=== PATIENT | male | born 1975 | race Two or more races ===

== ENCOUNTER → 2016-05-18 | Outpatient (REF) | payer BC ==
[2016-05-18 19:37] LABS: CALCIUM OXALATE CRYSTALS SMALL
== END ==
LOC: M SMT 17:04
PROVIDERS: ATTEND Nurse Practitioner Women's Health
DX: R35.0 Frequency of micturition (principal)

== ENCOUNTER 2017-04-11 09:24 | Day surgery (SDC) | payer BC ==
[2017-04-11] MEDS ORDERED: LIDOCAINE 1% MDV 20ML VIAL SQ (09:45)
[2017-04-11] MEDS ORDERED: LR 1,000 ML IV ×3 (09:45→14:00)
[2017-04-11] MEDS ORDERED: fentaNYL 100 MCG/2 ML INJECTION (J3010) As Ordered ×2 (10:31→13:03)
[2017-04-11] MEDS ORDERED: MIDAZOLAM INJ 2 MG/2 ML VIAL (J2250) As Ordered (10:31)
[2017-04-11] MEDS ORDERED: LIDOCAINE 2% INJ 100 MG/5 ML SDV (FOR ANES.) As Ordered (10:32)
[2017-04-11] MEDS ORDERED: PROPOFOL 200 MG/20 ML VIAL As Ordered (10:32)
[2017-04-11] MEDS ORDERED: ROCURONIUM BROMIDE 50 MG/5 ML VIAL As Ordered (10:34)
[2017-04-11] MEDS ORDERED: EPINEPHrine 1MG/ML INJ 30ML MD-VIAL As Ordered (11:53)
[2017-04-11] MEDS ORDERED: LIDOCAINE W/EPINEPHRINE 1% 20ML VIAL As Ordered (11:54)
[2017-04-11] MEDS ORDERED: METHYLENE BLUE 0.5% (5MG/ML) 10 ML AMP (PROVAYBLUE)(Q9968 PER 1MG) As Ordered (11:54)
[2017-04-11] MEDS ORDERED: PHENYLephrine HCL 500 MCG/5 ML (100MCG/ML) SYRINGE (J2370) As Ordered (12:18)
[2017-04-11] MEDS ORDERED: dexameTHASONE 4 MG/ML 1ML VIAL (J1100) As Ordered ×2 (12:19)
[2017-04-11] MEDS ORDERED: ONDANSETRON 4MG/2ML VIAL (J2405) As Ordered (12:32)
[2017-04-11] MEDS ORDERED: GLYCOPYRROLATE INJ 0.2 MG/ML 2 ML VIAL As Ordered (13:38)
[2017-04-11] MEDS ORDERED: NEOSTIGMINE 10 MG/10 ML VIAL (J2710) As Ordered (13:38)
[2017-04-11] MEDS ORDERED: ACETAMINOPH W/CODEINE #3 TAB UD PO (14:00)
[2017-04-11] MEDS: NORCO, ANEXSIA 5/325MG TABLET (HYDROcodone/ACETAMINOPHEN) PO ×2 (14:07→14:37)
[2017-04-11] MEDS: ONDANSETRON 4MG/2ML VIAL (J2405) IV (14:07)
[2017-04-11] MEDS: fentaNYL 100 MCG/2 ML INJECTION (J3010) IV ×3 (14:10→14:23)
== END 2017-04-11 15:43 | disposition home or self-care (01) ==
LOC: M SDC 15:43
DX: J32.4 Chronic pansinusitis (principal); E78.00 Pure hypercholesterolemia, unspecified; K21.9 Gastro-esophageal reflux disease without esophagitis; G43.909 Migraine, unspecified, not intractable, without status migrainosus; I69.998 Other sequelae following unspecified cerebrovascular disease; Z79.899 Other long term (current) drug therapy
CPT/HCPCS: 31256

== ENCOUNTER 2018-03-30 08:04 | Emergency (ER) | payer BC ==
[~2018-03-30] VITALS: Ht 170.2 cm; Wt 81.8 kg
[~2018-03-30 08:04] MED LIST: FLON1SPR; LIPI10TA PO; OXYB5TAB PO; PRIL20CA9 PO; ZANTTAB9 PO
[2018-03-30] MEDS ORDERED: ACET-683 PO (08:18)
[2018-03-30 08:50] LABS: HEMATOCRIT 50.2 % (42.0-52.0); MEAN CORPUSCULAR HEMOGLOBIN 29.3 pg (27.0-33.0); MEAN CORPUSCULAR HGB CONC 33.9 g/dl (32.0-36.5); MEAN CORPUSCULAR VOLUME 86.6 fl (80.0-96.0); PLATELET COUNT, AUTOMATED 254 10^3/uL (150-450)
--- NOTE | 2018-03-30 09:03 | REP ---
CT Head without contrast HISTORY: Headache COMPARISON: CT and MR 12/13/2016 A 1.4 cm focus of increased density is present in the [place]. This represents a cavernous hemangioma. There is no surrounding edema or mass effect. The fourth ventricle is midline. There is no acute intraparenchymal hemorrhage, acute infarct, mass or midline shift. The ventricular system is normal in appearance. There is no extra cerebral collection. There is no fracture. The visualized sinuses are clear. 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 Electronically Signed by Zackary Argueta MD 03/30/2018 08:54 A
[2018-03-30 09:14] LABS: BLOOD UREA NITROGEN 12 MG/DL (7-18); CALCIUM LEVEL 9.2 MG/DL (8.5-10.1); CARBON DIOXIDE LEVEL 26 MEQ/L (21-32); CHLORIDE LEVEL 106 MEQ/L (98-107); CREATININE FOR GFR 1.32 MG/DL (0.70-1.30); GLOMERULAR FILTRATION RATE > 60.0 (>60); GLUCOSE, FASTING 142 MG/DL (70-100); POTASSIUM SERUM 4.1 MEQ/L (3.5-5.1); SODIUM LEVEL 137 MEQ/L (136-145)
[2018-03-30 09:18] LABS: PARTIAL THROMBOPLASTIN TIME 26.5 SECONDS (25.4-37.6); PROTHROMBIN TIME 13.3 SECONDS (12.1-14.4)
[2018-03-30 11:17] VITALS: BP 138/90
== END 2018-03-30 11:22 | disposition short-term general hospital (02) ==
LOC: M ED 08:04
DX: I61.3 Nontraumatic intracerebral hemorrhage in brain stem (principal); D18.00 Hemangioma unspecified site; E78.5 Hyperlipidemia, unspecified; Z79.899 Other long term (current) drug therapy; Z88.6 Allergy status to analgesic agent